=== PATIENT | female | born 1990 | race African-American/Black ===

== ENCOUNTER 2022-11-28 23:56 | Emergency (ER) | payer OTHER ==
[~2022-11-28] VITALS: Ht 152.4 cm; Wt 104.0 kg
[2022-11-29 00:08] VITALS: BP 135/90; PULSE 119; RESP 19; TEMP 98.5; O2SAT 100
[2022-11-29] MEDS ORDERED: LIDOCAINE HCL 1% 20ML VIAL (Pyxis) INJ INFIL ONE (00:15)
[2022-11-29] MEDS ORDERED: DOXY100C5 MT (01:52)
== END 2022-11-29 00:52 | disposition left against medical advice (07) ==
LOC: ER 11-29 00:48
DX: L53.9 Erythematous condition, unspecified (principal); Z88.0 Allergy status to penicillin
CPT/HCPCS: 99281; J3490; Z7610 ×6

== ENCOUNTER 2022-11-29 01:21 | Emergency (ER) | payer OTHER, MEDICAID ==
[~2022-11-29] VITALS: Ht 152.4 cm; Wt 107.0 kg
[2022-11-29 01:27] VITALS: BP 125/82; PULSE 93; RESP 17; TEMP 97.9; O2SAT 100
[2022-11-29] MEDS ORDERED: DOXY100C5 MT (01:52)
== END 2022-11-29 02:15 | disposition home or self-care (01) ==
LOC: ER 01:37
DX: L53.9 Erythematous condition, unspecified (principal); Z88.0 Allergy status to penicillin
CPT/HCPCS: 10060; 99284